=== PATIENT | female | born 1995 ===

== ENCOUNTER 2020-03-13 22:04 | Inpatient (IN) | payer BC ==
[2020-03-13] MEDS ORDERED: Tranexamic Acid 1,000 MG in Sodium Chloride 0.9% 100 ML IV PRN (22:22)
[2020-03-13] MEDS ORDERED: Acetaminophen 325 MG Tab PO PRN (22:22)
[2020-03-13] MEDS ORDERED: Sodium Chloride 0.9% 10 ML Syringe FLUSH PRN (22:22)
[2020-03-13] MEDS ORDERED: Lidocaine 1% 30 ML SDV INJECT PRN (22:22)
[2020-03-13] MEDS ORDERED: fentaNYL 100 MCG/2 ML SDV IVPUSH PRN (22:22)
[2020-03-13] MEDS ORDERED: Carboprost Tromethamine 250 MCG/1 ML Amp IM PRN (22:22)
[2020-03-13] MEDS ORDERED: Misoprostol 400 MCG (4 X 100 MCG TAB) RECTAL PRN (22:22)
[2020-03-13] MEDS ORDERED: Lactated Ringers 1,000 ML IV ONE (22:22)
[2020-03-13] MEDS ORDERED: Ondansetron 4 MG/2 ML SDV IVPUSH PRN (22:22)
[2020-03-13] MEDS ORDERED: Methylergonovine 0.2 MG/1 ML Amp IM PRN (22:22)
[2020-03-13] MEDS ORDERED: Butorphanol 2 MG/ML SDV IVPUSH PRN ×2 (22:22)
--- NOTE | 2020-03-13 23:12 | PCM.LDHP ---
L&D History of Present Illness - General Date of Service: 03/13/20 Admit Problem/Dx: Patient Status Order with Admit Dx/Problem 03/13/20 22:23 Patient Status [ADT] Routine Admission Diagnosis/Problem Admission Diagnosis/Problem care in third trimester Source of Information: Patient History Limitations: Reports: No Limitations - History of Present Illness Introduction:: 25-year-old at 39w6d presents to L&D with increased contractions since 2029. Patient went for a walk around 1300 and reports she started to feel "yucky" afterwards. She gradually more uncomfortable until the contractions started. Baby has been active. No vaginal bleeding or leaking of fluid. No new headaches or vision changes. Contractions are currently 2-3 minutes apart. has been uncomplicated. - Related Data Allergies/Adverse Reactions: Allergies Allergy/AdvReac Type Severity Reaction Status Date / Time amoxicillin Allergy Cannot Verified 03/13/20 22:51 Remember cephalexin Allergy Cannot Verified 03/13/20 22:51 Remember Penicillins Allergy Cannot Verified 03/13/20 22:51 Remember Sulfa (Sulfonamide Allergy Cannot Verified 03/13/20 22:51 Antibiotics) Remember naldecon Allergy Rash Uncoded 03/13/20 22:51 Home Medications: Home Meds Famotidine [Pepcid] 20 mg PO BEDTIME 03/13/20 [History] Ferrous Sulfate [Iron] 325 mg PO DAILY 03/13/20 [History] Pnv No.95/Ferrous Fum/Folic AC [ Caplet] 1 tab PO DAILY 03/13/20 [History] Past Medical History HEENT History: Reports: Other (See Below) (Concussion) Musculoskeletal History: Reports: Arthritis (Lyme arthritis of hip) - Past Surgical History HEENT Surgical History: Reports: Adenoidectomy, Myringotomy w Tube(s), Tonsillectomy Social & Family History - Family History Endocrine/Metabolic: Reports: Diabetes, type II (Maternal grandfather) Oncologic: Reports: Leukemia (Paternal grandfather) - Tobacco Use Tobacco Use Status *Q: Never Tobacco User - Living Situation & Occupation Living situation: Reports: Occupation: Employed H&P Review of Systems - Review of Systems: Review Of Systems: See Below General: Reports: No Symptoms HEENT: Reports: No Symptoms Pulmonary: Reports: No Symptoms Cardiovascular: Reports: No Symptoms Genitourinary: Reports: No Symptoms Musculoskeletal: Reports: No Symptoms Skin: Reports: No Symptoms L&D Exam - Exam Exam: See Below - Vital Signs Weight: 82.1 kg - OB Specific Fundal Height In cm: 37 Contraction Intensity: Moderate to Strong Movement: Active Heart Tones: Present Heart Tones per Min: 140 Heart Rate (FHR) Variability: Moderate (6-25 bmp) Presentation: Vertex - Marie Score Marie Score Cervix Position: Anterior Marie Score Consistency: Soft Marie Score Effacement: >80% Marie Score Dilation: > 5 cm Marie Score Infant's Station: -1 ,0 Marie Score Total: 12 - Exam General: Alert, Oriented Lungs: Clear to Auscultation, Normal Respiratory Effort Cardiovascular: Regular Rate, Regular Rhythm Genitourinary: Normal external exam Back Exam: Normal Inspection Extremities: Normal Inspection, Pedal Edema (Trace bilaterally) Skin: Warm, Dry, Intact - Problem List (1) care in third trimester SNOMED Code(s): 631540554, 79316257, 56061652, 598094048, 146286317 ICD Code: Z34.93 - ENCNTR FOR SUPRVSN OF NORMAL PREG, UNSP, THIRD TRIMESTER Status: Acute Current Visit: Yes (2) Rh negative status during SNOMED Code(s): 631436960 ICD Code: O26.899 - OTH RELATED CONDITIONS, UNSPECIFIED TRIMESTER; Z67.91 - UNSPECIFIED BLOOD TYPE, RH NEGATIVE Status: Acute Current Visit: Yes (3) Anemia affecting SNOMED Code(s): 75806486 ICD Code: O99.019 - ANEMIA COMPLICATING , UNSPECIFIED TRIMESTER Status: Acute Current Visit: Yes Problem List Initiated/Reviewed/Updated: Yes Orders Last 24hrs: Active Orders 24 hr Category Date Time Status Patient Status [ADT] Routine ADT 03/13/20 22:23 Active Communication Order [RC] ASDIRECTED Care 03/13/20 22:23 Active Heart Tones [RC] PER UNIT ROUTINE Care 03/13/20 22:23 Active Nitrous Oxide Delivery [RC] ASDIRECTED Care 03/13/20 22:26 Active Notify Provider Vital Signs OB [RC] ASDIRECTED Care 03/13/20 22:23 Active Notify Provider [RC] PRN Care 03/13/20 22:23 Active OB Discontinue Nitrous Oxide [RC] ASDIRECTED Care 03/13/20 22:26 Active Pump Management, Intrathecal [RC] ASDIRECTED Care 03/13/20 22:22 Active Up ad Ashleigh [RC] ASDIRECTED Care 03/13/20 22:23 Active Vital Signs [RC] PER UNIT ROUTINE Care 03/13/20 22:23 Active CBC W/O DIFF,HEMOGRAM [HEME] Stat Lab 03/13/20 22:22 Ordered CORONAVIRUS COVID-19 [facility]ARA [MOLEC] Stat Lab 03/13/20 22:22 Received Acetaminophen [TylenoL] Med 03/13/20 22:22 Active 650 mg PO Q4H PRN Butorphanol [Stadol] Med 03/13/20 22:22 Active 0.5 mg IVPUSH Q3H PRN Butorphanol [Stadol] Med 03/13/20 22:22 Active 1 mg IVPUSH Q3H PRN Carboprost Tromethamine [Hemabate DS] Med 03/13/20 22:22 Active 250 mcg IM ASDIRECTED PRN Lactated Ringers [Ringers, Lactated] 1,000 ml Med 03/13/20 22:30 Active IV ASDIRECTED Lactated Ringers [Ringers, Lactated] 1,000 ml Med 03/13/20 22:22 Active IV BOLUS Lidocaine 1% [Xylocaine-MPF 1%] Med 03/13/20 22:22 Active 30 ml INJECT ASDIRECTED PRN Methylergonovine [Methergine] Med 03/13/20 22:22 Active 0.2 mg IM ASDIRECTED PRN Ondansetron [Zofran] Med 03/13/20 22:22 Active 4 mg IVPUSH Q4H PRN Oxytocin/Normal Saline [Pitocin in NS 30 UNIT/500 ML] Med 03/13/20 22:30 Active 30 unit in 500 ml IV TITRATE Sodium Chloride 0.9% [Saline Flush] Med 03/13/20 22:22 Active 10 ml FLUSH ASDIRECTED PRN Tranexamic Acid [Cyklokapron] 1,000 mg Med 03/13/20 22:22 Active Sodium Chloride 0.9% [Normal Saline] 100 ml IV ONETIME fentaNYL [Sublimaze] Med 03/13/20 22:22 Active 100 mcg IVPUSH Q1H PRN miSOPROStoL [Cytotec] Med 03/13/20 22:22 Active 800 mcg RECTAL ASDIRECTED PRN Saline Lock Insert [OM.PC] Routine Oth 03/13/20 22:23 Ordered Resuscitation Status Routine Resus Stat 03/13/20 22:22 Ordered Medication Orders Acetaminophen (Tylenol) 650 mg PO Q4H PRN PRN Reason: Pain (Mild 1-3) and fever Butorphanol Tartrate (Stadol) 0.5 mg IVPUSH Q3H PRN PRN Reason: Pain Butorphanol Tartrate (Stadol) 1 mg IVPUSH Q3H PRN PRN Reason: Pain Carboprost Tromethamine (Hemabate Ds) 250 mcg IM ASDIRECTED PRN PRN Reason: HEMORRHAGE Fentanyl (Sublimaze) 100 mcg IVPUSH Q1H PRN PRN Reason: Pain (moderate 4-6) Tranexamic Acid 1,000 mg/ (Sodium Chloride) 110 mls @ 660 mls/hr IV ONETIME PRN PRN Reason: Bleeding Oxytocin/Sodium Chloride (Pitocin In Ns 30 Unit/500 Ml) 30 unit in 500 mls @ 2 mls/hr IV TITRATE L[facility]ENE; Protocol Lactated Ringer's (Ringers, Lactated) 1,000 mls @ 999 mls/hr IV BOLUS ONE Stop: 03/13/20 23:22 Lactated Ringer's (Ringers, Lactated) 1,000 mls @ 125 mls/hr IV ASDIRECTED LORENE Lidocaine HCl (Xylocaine-Mpf 1%) 30 ml INJECT ASDIRECTED PRN PRN Reason: Perineal Repair Methylergonovine Maleate (Methergine) 0.2 mg IM ASDIRECTED PRN PRN Reason: Hemorrhage Misoprostol (Cytotec) 800 mcg RECTAL ASDIRECTED PRN PRN Reason: Hemorrhage Ondansetron HCl (Zofran) 4 mg IVPUSH Q4H PRN PRN Reason: Nausea/Vomiting Sodium Chloride (Saline Flush) 10 ml FLUSH ASDIRECTED PRN PRN Reason: Keep Vein Open Assessment/Plan Comment:: 1. Admit to L&D and initiate routine intrapartum cares 2. Patient does not desire intrathecal 3. COVID testing pending 4. AROM when able 5. Expectant management. Anticipate Cari Allan MD
[2020-03-13] MEDS: Oxytocin/Normal Saline 30 UNIT/500 ML BAG IV SCH (23:25)
[2020-03-13] MEDS: Lactated Ringers 1,000 ML IV SCH (23:26)
[2020-03-14] MEDS: Lactated Ringers 1,000 ML IV SCH (00:03)
[2020-03-14] MEDS: Oxytocin/Normal Saline 30 UNIT/500 ML BAG IV SCH (00:35)
[2020-03-14] MEDS ORDERED: Benzocaine/Menthol 20%-0.5% Spray 56 GM Canister TOP PRN (00:42)
[2020-03-14] MEDS ORDERED: Simethicone 80 MG Tab.Chew PO PRN (00:42)
[2020-03-14] MEDS ORDERED: Oxytocin 10 Units/1 ML SDV IM PRN (00:42)
--- NOTE | 2020-03-14 01:04 | PCM.DEL ---
L & D Note - General Info Date of Service: 03/14/20 Mother's Due Date: 03/14/20 - Delivery Note Labor: Spontaneous, Augmented by ARM Delivery Outcome: Livebirth Delivery Method: Spontaneous Vaginal Delivery-Single Presentation: Vertex Nuchal Cord: None Anesthesia Type: Nitrous Oxide Amniotic Fluid Description: Clear Episiotomy Type: None Laceration: None Placenta: Intact, Spontaneous Cord: 3 Vessels Estimated Blood Loss: 225 Resuscitation Needed: No : Warmed, Corea Used Provider: Cari Allan Score 1 min: 9 Score 5 min: 9 Delivery Comments (Free Text/Narrative):: 25-year-old at 39w6d presented to L&D at 2215 with increased contractions since 1999. She was noted to be 9+ cm with a bulging bag. After COVID returned negative, AROM was performed for large amount of clear fluid and was noted to be an anterior lip. Patient pushed for 25 minutes and delivered a viable female infant with Apgars of 9 and 9 at 1 and 5 minutes respectively. Infant was placed on mother's chest. After cord stopped pulsating, it was clamped x2 and cut by patient's . Cord blood was collected. Placenta delivered 5 minutes later spontaneously and was noted to be intact. Pitocin was started. Uterus was noted to be firm. Perineum was noted to be intact. Patient tolerated the procedure well, and there were no immediate complications. - General Info Date of Service: 03/14/20 - Patient Data Vitals - Most Recent: Last Vital Signs Temp 36.6 C 03/13/20 22:50 Pulse 73 03/13/20 22:50 Resp 14 03/13/20 22:50 BP 127/76 03/13/20 22:50 Pulse Ox 98 03/13/20 22:50 Weight - Most Recent: 82.1 kg Lab Results Last 24 Hours: Laboratory Results - last 24 hr 03/13/20 03/13/20 Range/Units 22:22 23:35 WBC 13.9 H (5.0-10.0) 10^3/uL RBC 3.84 L (4.2-5.4) 10^6/uL Hgb 11.9 L (12.0-16.0) g/dL Hct 35.8 L (37.0-47.0) % MCV 93.2 (80-100) fL MCH 31.0 (27.0-34.0) pg MCHC 33.2 (33.0-35.0) g/dL Plt Count 242 (150-450) 10^3/uL SARS-CoV-2 RNA ([facility]) Negative (NEGATIVE) Med Orders - Current: Current Medications Acetaminophen (Tylenol) 650 mg PO Q4H PRN PRN Reason: Pain (Mild 1-3) and fever Benzocaine/Menthol (Dermoplast Pain Relief [place]) 0 gm TOP Q4H PRN PRN Reason: Perineal comfort measures Carboprost Tromethamine (Hemabate Ds) 250 mcg IM ASDIRECTED PRN PRN Reason: HEMORRHAGE Docusate Sodium (Colace) 100 mg PO BID PRN PRN Reason: Constipation Tranexamic Acid 1,000 mg/ (Sodium Chloride) 110 mls @ 660 mls/hr IV ONETIME PRN PRN Reason: Bleeding Oxytocin/Sodium Chloride (Pitocin In Ns 30 Unit/500 Ml) 30 unit in 500 mls @ 2 mls/hr IV TITRATE [facility]; Protocol Last Admin: 03/13/20 23:25 Dose: 500 munits/min, 500 mls/hr Documented by: Ibuprofen (Motrin) 800 mg PO Q8H PRN PRN Reason: Mild Pain or Fever Methylergonovine Maleate (Methergine) 0.2 mg IM ASDIRECTED PRN PRN Reason: Hemorrhage Misoprostol (Cytotec) 800 mcg RECTAL ASDIRECTED PRN PRN Reason: Hemorrhage Ondansetron HCl (Zofran) 4 mg IVPUSH Q4H PRN PRN Reason: Nausea/Vomiting Oxytocin (Pitocin) 10 unit IM ONETIME PRN PRN Reason: Bleeding Prenat Multivit/[place]/Iron/Folic Ac ( Plus Iron) 1 each PO DAILY [facility] Simethicone (Simethicone) 80 mg PO Q4H PRN PRN Reason: Gas Sodium Chloride (Saline Flush) 10 ml FLUSH ASDIRECTED PRN PRN Reason: Keep Vein Open Discontinued Medications Butorphanol Tartrate (Stadol) 0.5 mg IVPUSH Q3H PRN PRN Reason: Pain Butorphanol Tartrate (Stadol) 1 mg IVPUSH Q3H PRN PRN Reason: Pain Fentanyl (Sublimaze) 100 mcg IVPUSH Q1H PRN PRN Reason: Pain (moderate 4-6) Lactated Ringer's (Ringers, Lactated) 1,000 mls @ 999 mls/hr IV BOLUS ONE Stop: 03/13/20 23:22 Lactated Ringer's (Ringers, Lactated) 1,000 mls @ 125 mls/hr IV ASDIRECTED LORENE Last Infusion: 03/14/20 00:03 Dose: Infused Documented by: Lidocaine HCl (Xylocaine-Mpf 1%) 30 ml INJECT ASDIRECTED PRN PRN Reason: Perineal Repair - Problem List & Annotations (1) care in third trimester SNOMED Code(s): 186364832, 16751133, 71099318, 910319950, 469877558 Code(s): Z34.93 - ENCNTR FOR SUPRVSN OF NORMAL PREG, UNSP, THIRD TRIMESTER Status: Acute Current Visit: Yes (2) Rh negative status during SNOMED Code(s): 464723272 Code(s): O26.899 - OTH RELATED CONDITIONS, UNSPECIFIED TRIMESTER; Z67.91 - UNSPECIFIED BLOOD TYPE, RH NEGATIVE Status: Acute Current Visit: Yes (3) Anemia affecting SNOMED Code(s): 80622116 Code(s): O99.019 - ANEMIA COMPLICATING , UNSPECIFIED TRIMESTER Status: Acute Current Visit: Yes (4) (normal spontaneous vaginal delivery) SNOMED Code(s): 78691703, 790023686 Code(s): O80 - ENCOUNTER FOR FULL-TERM UNCOMPLICATED DELIVERY Status: Acute Current Visit: Yes - Problem List Review Problem List Initiated/Reviewed/Updated: Yes - My Orders Last 24 Hours: My Active Orders 03/13/20 22:22 Acetaminophen [TylenoL] 650 mg PO Q4H PRN Carboprost Tromethamine [Hemabate DS] 250 mcg IM ASDIRECTED PRN Methylergonovine [Methergine] 0.2 mg IM ASDIRECTED PRN Ondansetron [Zofran] 4 mg IVPUSH Q4H PRN Sodium Chloride 0.9% [Saline Flush] 10 ml FLUSH ASDIRECTED PRN Tranexamic Acid [Cyklokapron] 1,000 mg Sodium Chloride 0.9% [Normal Saline] 100 ml IV ONETIME miSOPROStoL [Cytotec] 800 mcg RECTAL ASDIRECTED PRN Resuscitation Status Routine 03/13/20 22:23 Patient Status [ADT] Routine Communication Order [RC] ASDIRECTED Notify Provider Vital Signs OB [RC] ASDIRECTED Up ad Ashleigh [RC] ASDIRECTED Saline Lock Insert [OM.PC] Routine 03/13/20 22:26 Nitrous Oxide Delivery [RC] ASDIRECTED OB Discontinue Nitrous Oxide [RC] ASDIRECTED 03/13/20 22:30 Oxytocin/Normal Saline [Pitocin in NS 30 UNIT/500 ML] 30 unit in 500 ml IV TITRATE 03/14/20 00:42 Vital Signs [RC] PFP Benzocaine/Menthol [Dermoplast Pain Relief [place]] See Dose Instructions TOP Q4H PRN Docusate Sodium [Colace] 100 mg PO BID PRN Ibuprofen [Motrin] 800 mg PO Q8H PRN Oxytocin [Pitocin] 10 unit IM ONETIME PRN Simethicone 80 mg PO Q4H PRN 03/14/20 00:43 Assess Lochia [WOMSER] Per Unit Routine Assess Uterine Involution [WOMSER] Per Unit Routine Breast Pump [WOMSER] Per Unit Routine Ice Therapy [OM.PC] Per Unit Routine Perineal Care [OM.PC] Per Unit Routine Sitz Bath [OM.PC] Per Unit Routine 03/14/20 Breakfast Regular Diet [DIET] 03/14/20 09:00 Vit with Ca/FA/Iron [ Plus Iron] 1 each PO DAILY - Assessment Assessment:: 25-year-old now s/p at 40w0d - Plan Plan:: 1. Initiate routine orders 2. Plans to breastfeed 3. Anticipate discharge 03/16/2020 Cari Allan MD
[2020-03-14] MEDS: Ibuprofen 800 MG Tab PO PRN ×3 (02:41→21:30)
[2020-03-14] MEDS: Docusate Sodium 100 MG Cap PO PRN ×2 (09:22→20:13)
[2020-03-14] MEDS: Prenatal Multivitamin with Calcium/Folic Acid/Iron Tab PO SCH (09:22)
--- NOTE | 2020-03-15 06:05 | PCM.PNPP ---
- Patient Data Vital Signs - Most Recent: Last Vital Signs Temp 37.2 C 03/14/20 20:00 Pulse 98 03/14/20 20:00 Resp 18 03/14/20 20:00 BP 129/66 03/14/20 20:00 Pulse Ox 98 03/14/20 20:00 Weight - Most Recent: 82.1 kg Med Orders - Current: Current Medications Acetaminophen (Tylenol) 650 mg PO Q4H PRN PRN Reason: Pain (Mild 1-3) and fever Last Admin: 03/14/20 20:13 Dose: 650 mg Documented by: Benzocaine/Menthol (Dermoplast Pain Relief [place]) 0 gm TOP Q4H PRN PRN Reason: Perineal comfort measures Carboprost Tromethamine (Hemabate Ds) 250 mcg IM ASDIRECTED PRN PRN Reason: HEMORRHAGE Docusate Sodium (Colace) 100 mg PO BID PRN PRN Reason: Constipation Last Admin: 03/14/20 20:13 Dose: 100 mg Documented by: Tranexamic Acid 1,000 mg/ (Sodium Chloride) 110 mls @ 660 mls/hr IV ONETIME PRN PRN Reason: Bleeding Oxytocin/Sodium Chloride (Pitocin In Ns 30 Unit/500 Ml) 30 unit in 500 mls @ 2 mls/hr IV TITRATE [facility]; Protocol Last Titration: 03/14/20 03:52 Dose: Infused Documented by: Ibuprofen (Motrin) 800 mg PO Q8H PRN PRN Reason: Mild Pain or Fever Last Admin: 03/14/20 21:30 Dose: 800 mg Documented by: Methylergonovine Maleate (Methergine) 0.2 mg IM ASDIRECTED PRN PRN Reason: Hemorrhage Misoprostol (Cytotec) 800 mcg RECTAL ASDIRECTED PRN PRN Reason: Hemorrhage Ondansetron HCl (Zofran) 4 mg IVPUSH Q4H PRN PRN Reason: Nausea/Vomiting Oxytocin (Pitocin) 10 unit IM ONETIME PRN PRN Reason: Bleeding Prenat Multivit/[place]/Iron/Folic Ac ( Plus Iron) 1 each PO DAILY L[facility] Last Admin: 03/14/20 09:22 Dose: 1 each Documented by: Simethicone (Simethicone) 80 mg PO Q4H PRN PRN Reason: Gas Sodium Chloride (Saline Flush) 10 ml FLUSH ASDIRECTED PRN PRN Reason: Keep Vein Open Discontinued Medications Butorphanol Tartrate (Stadol) 0.5 mg IVPUSH Q3H PRN PRN Reason: Pain Butorphanol Tartrate (Stadol) 1 mg IVPUSH Q3H PRN PRN Reason: Pain Fentanyl (Sublimaze) 100 mcg IVPUSH Q1H PRN PRN Reason: Pain (moderate 4-6) Lactated Ringer's (Ringers, Lactated) 1,000 mls @ 999 mls/hr IV BOLUS ONE Stop: 03/13/20 23:22 Last Admin: 03/14/20 00:53 Dose: Not Given Documented by: Lactated Ringer's (Ringers, Lactated) 1,000 mls @ 125 mls/hr IV ASDIRECTED LORENE Last Infusion: 03/14/20 00:03 Dose: Infused Documented by: Lidocaine HCl (Xylocaine-Mpf 1%) 30 ml INJECT ASDIRECTED PRN PRN Reason: Perineal Repair - Infant Interaction Support Person: - Recovery Exam Fundal Tone: Firm Fundal Level: 1 Fingerbreadths Below Umbilicus Fundal Placement: Midline Lochia Amount: Small Lochia Color: Rubra/Red Perineum Description: Intact, Minimal Bruising/Swelling Episiotomy/Laceration: None Bladder Status: Voiding Urinary Elimination: Voided - Problem List & Annotations (1) care in third trimester SNOMED Code(s): 761694688, 99043159, 59943566, 127155018, 261421844 Code(s): Z34.93 - ENCNTR FOR SUPRVSN OF NORMAL PREG, UNSP, THIRD TRIMESTER Status: Acute Current Visit: Yes (2) Rh negative status during SNOMED Code(s): 649095408 Code(s): O26.899 - OTH RELATED CONDITIONS, UNSPECIFIED TRIMESTER; Z67.91 - UNSPECIFIED BLOOD TYPE, RH NEGATIVE Status: Acute Current Visit: Yes (3) Anemia affecting SNOMED Code(s): 74395495 Code(s): O99.019 - ANEMIA COMPLICATING , UNSPECIFIED TRIMESTER Status: Acute Current Visit: Yes (4) (normal spontaneous vaginal delivery) SNOMED Code(s): 15286122, 335831741 Code(s): O80 - ENCOUNTER FOR FULL-TERM UNCOMPLICATED DELIVERY Status: Acute Current Visit: Yes - My Orders Last 24 Hours: My Active Orders 03/14/20 Breakfast Regular Diet [DIET] 03/14/20 09:00 Vit with Ca/FA/Iron [ Plus Iron] 1 each PO DAILY - Assessment Assessment:: 25-year-old now s/p at 40w0d - Plan Plan:: 1. Initiate routine orders 2. Plans to breastfeed 3. Anticipate discharge 03/16/2020 Cari Allan MD
[2020-03-15] MEDS: Prenatal Multivitamin with Calcium/Folic Acid/Iron Tab PO SCH (09:31)
[2020-03-15] MEDS: Docusate Sodium 100 MG Cap PO PRN (09:32)
[2020-03-15] MEDS: Ibuprofen 800 MG Tab PO PRN (09:32)
--- NOTE | 2020-03-15 12:41 | PCM.DCSUM1 ---
Discharge Summary - Hospital Course Diagnosis: Stroke: No - Discharge Data Discharge Disposition: Home, Self-Care 01 Condition: Good - Referral to Home Health Primary Care Physician: Vignesh Allan MD - Discharge Diagnosis/Problem(s) (1) care in third trimester SNOMED Code(s): 638892055, 37487149, 48758923, 856277500, 141522529 ICD Code: Z34.93 - ENCNTR FOR SUPRVSN OF NORMAL PREG, UNSP, THIRD TRIMESTER Status: Acute Current Visit: Yes (2) Rh negative status during SNOMED Code(s): 852141286 ICD Code: O26.899 - OTH RELATED CONDITIONS, UNSPECIFIED TRIMESTER; Z67.91 - UNSPECIFIED BLOOD TYPE, RH NEGATIVE Status: Acute Current Visit: Yes (3) Anemia affecting SNOMED Code(s): 33543066 ICD Code: O99.019 - ANEMIA COMPLICATING , UNSPECIFIED TRIMESTER Status: Acute Current Visit: Yes (4) (normal spontaneous vaginal delivery) SNOMED Code(s): 22431799, 785184466 ICD Code: O80 - ENCOUNTER FOR FULL-TERM UNCOMPLICATED DELIVERY Status: Acute Current Visit: Yes - Patient Instructions Diet: Usual Diet as Tolerated Activity: As Tolerated, No Lifting Over 20 Pounds Driving: May Drive Today Showering/Bathing: May Shower Wound/Incision Care: Keep Operative Site/Wound Site Clean and Dry Notify Provider of: Fever, Increased Pain, Swelling and Redness, Drainage, Nausea and/or Vomiting - Discharge Plan *PRESCRIPTION DRUG MONITORING PROGRAM REVIEWED*: Not Applicable *COPY OF PRESCRIPTION DRUG MONITORING REPORT IN PATIENT ADRIAN: Not Applicable Home Medications: Home Meds Famotidine [Pepcid] 20 mg PO BEDTIME 03/13/20 [History] Ferrous Sulfate [Iron] 325 mg PO DAILY 03/13/20 [History] Pnv No.95/Ferrous Fum/Folic AC [ Caplet] 1 tab PO DAILY 03/13/20 [History] Acetaminophen [Tylenol] 650 mg PO Q4H PRN tablet 03/15/20 [Rx] Docusate Sodium [Colace] 100 mg PO BID PRN cap 03/15/20 [Rx] Ibuprofen [Motrin] 800 mg PO Q8H PRN tablet 03/15/20 [Rx] Referrals: Cari Allan MD [Primary Care Provider] - (6-8 weeks ) - Patient Data Vitals - Most Recent: Last Vital Signs Temp 36.1 C 03/15/20 08:00 Pulse 99 03/15/20 08:00 Resp 16 03/15/20 08:00 BP 124/73 03/15/20 08:00 Pulse Ox 98 03/14/20 20:00 Weight - Most Recent: 82.1 kg Med Orders - Current: Current Medications Acetaminophen (Tylenol) 650 mg PO Q4H PRN PRN Reason: Pain (Mild 1-3) and fever Last Admin: 03/14/20 20:13 Dose: 650 mg Documented by: Benzocaine/Menthol (Dermoplast Pain Relief [place]) 0 gm TOP Q4H PRN PRN Reason: Perineal comfort measures Carboprost Tromethamine (Hemabate Ds) 250 mcg IM ASDIRECTED PRN PRN Reason: HEMORRHAGE Docusate Sodium (Colace) 100 mg PO BID PRN PRN Reason: Constipation Last Admin: 03/15/20 09:32 Dose: 100 mg Documented by: Tranexamic Acid 1,000 mg/ (Sodium Chloride) 110 mls @ 660 mls/hr IV ONETIME PRN PRN Reason: Bleeding Oxytocin/Sodium Chloride (Pitocin In Ns 30 Unit/500 Ml) 30 unit in 500 mls @ 2 mls/hr IV TITRATE [facility]; Protocol Last Titration: 03/14/20 03:52 Dose: Infused Documented by: Ibuprofen (Motrin) 800 mg PO Q8H PRN PRN Reason: Mild Pain or Fever Last Admin: 03/15/20 09:32 Dose: 800 mg Documented by: Methylergonovine Maleate (Methergine) 0.2 mg IM ASDIRECTED PRN PRN Reason: Hemorrhage Misoprostol (Cytotec) 800 mcg RECTAL ASDIRECTED PRN PRN Reason: Hemorrhage Ondansetron HCl (Zofran) 4 mg IVPUSH Q4H PRN PRN Reason: Nausea/Vomiting Oxytocin (Pitocin) 10 unit IM ONETIME PRN PRN Reason: Bleeding Prenat Multivit/[place]/Iron/Folic Ac ( Plus Iron) 1 each PO DAILY [facility] Last Admin: 03/15/20 09:31 Dose: 1 each Documented by: Simethicone (Simethicone) 80 mg PO Q4H PRN PRN Reason: Gas Sodium Chloride (Saline Flush) 10 ml FLUSH ASDIRECTED PRN PRN Reason: Keep Vein Open Discontinued Medications Butorphanol Tartrate (Stadol) 0.5 mg IVPUSH Q3H PRN PRN Reason: Pain Butorphanol Tartrate (Stadol) 1 mg IVPUSH Q3H PRN PRN Reason: Pain Fentanyl (Sublimaze) 100 mcg IVPUSH Q1H PRN PRN Reason: Pain (moderate 4-6) Lactated Ringer's (Ringers, Lactated) 1,000 mls @ 999 mls/hr IV BOLUS ONE Stop: 03/13/20 23:22 Last Admin: 03/14/20 00:53 Dose: Not Given Documented by: Lactated Ringer's (Ringers, Lactated) 1,000 mls @ 125 mls/hr IV ASDIRECTED LORENE Last Infusion: 03/14/20 00:03 Dose: Infused Documented by: Lidocaine HCl (Xylocaine-Mpf 1%) 30 ml INJECT ASDIRECTED PRN PRN Reason: Perineal Repair
== END 2020-03-15 13:35 | disposition home or self-care (01) | DRG 560 ==
LOC: DL.OBCHECK 22:04 → DL.OB 22:23 → OBSVTOIN 03-14 00:16
PROVIDERS: ADMIT Family Medicine; ATTEND Family Medicine
PROC: 10E0XZZ Delivery of Products of Conception, External Approach (ICD-10-PCS; principal; 2020-03-14)
PROC: 10907ZC Drainage of Amniotic Fluid, Therapeutic from Products of Conception, Via Natural or Artificial Opening (ICD-10-PCS; 2020-03-14)
DX: O99.02 Anemia complicating childbirth (principal); D64.9 Anemia, unspecified; Z20.828 Contact with and (suspected) exposure to other viral communicable diseases; Z37.0 Single live birth; Z88.0 Allergy status to penicillin; Z88.2 Allergy status to sulfonamides; Z98.890 Other specified postprocedural states; Z3A.40 40 weeks gestation of pregnancy
CPT/HCPCS: 36415; 59409; 85027; A9270-GY; J2590; J7120; U0002